=== PATIENT | male | born 1950 | race Caucasian/White ===

== ENCOUNTER 2018-10-24 06:59 | Day surgery (SDC) | payer MEDICARE, OTHER ==
[~2018-10-24] VITALS: Ht 167.6 cm; Wt 101.8 kg
[~2018-10-24 06:59] MED LIST: Aspirin EC81 MG PO; GABA100 PO; Glucophage1000 MG PO; PIOG15 PO; Prinivil10 MG PO
== END 2018-10-24 09:13 | disposition home or self-care (01) ==
LOC: ORSCSDS 06:59
PROVIDERS: Ophthalmology
PROC: 08RK3JZ Replacement of Left Lens with Synthetic Substitute, Percutaneous Approach (ICD-10-PCS; principal; 2018-10-24 08:30)
DX: H25.12 Age-related nuclear cataract, left eye (principal); H21.81 Floppy iris syndrome; I10 Essential (primary) hypertension; E11.9 Type 2 diabetes mellitus without complications; Z79.4 Long term (current) use of insulin; Z79.899 Other long term (current) drug therapy; E66.01 Morbid (severe) obesity due to excess calories; Z68.36 Body mass index [BMI] 36.0-36.9, adult
CPT/HCPCS: 82947; J2001; J2250; J3301; J7120; V2632

== ENCOUNTER 2018-11-07 06:27 | Day surgery (SDC) | payer MEDICARE, OTHER ==
[~2018-11-07] VITALS: Ht 167.6 cm; Wt 101.8 kg
[2018-11-07] MEDS ORDERED: TAMS.4ER (07:15)
[2018-11-07] MEDS ORDERED: ATOR10 (07:16)
[2018-11-07] MEDS ORDERED: IBUP400 (07:17)
== END 2018-11-07 08:50 | disposition home or self-care (01) ==
LOC: ORSCSDS 06:27
PROVIDERS: Ophthalmology
PROC: 08RJ3JZ Replacement of Right Lens with Synthetic Substitute, Percutaneous Approach (ICD-10-PCS; principal; 2018-11-07 08:00)
DX: H25.11 Age-related nuclear cataract, right eye (principal); H21.81 Floppy iris syndrome; I10 Essential (primary) hypertension; E11.40 Type 2 diabetes mellitus with diabetic neuropathy, unspecified; Z79.4 Long term (current) use of insulin; Z79.84 Long term (current) use of oral hypoglycemic drugs; E66.01 Morbid (severe) obesity due to excess calories; Z68.36 Body mass index [BMI] 36.0-36.9, adult
CPT/HCPCS: 82947; J2001; J2250; J3301; V2632